=== PATIENT | female | born 1975 | race Caucasian/White ===

== ENCOUNTER 2019-04-15 21:17 | Emergency (ER) | payer SELFPAY ==
[~2019-04-15] VITALS: Ht 170.1 cm; Wt 90.2 kg
--- NOTE | 2019-04-15 21:18 | ED Abdominal Pain ---
General Stated Complaint: ABD PAIN Source of Information: Patient, EMS Exam Limitations: No Limitations History of Present Illness Date Seen by Provider: Apr 15, 2019 Time Seen by Provider: 21:17 Initial Comments 43-year-old female presents with abdominal pain, nausea "can't keep anything down" some vomiting diarrhea. Patient reports she's had some abdominal cramping for the last couple days. Patient reports that she just got out of detox this morning from heroin abuse. Patient reports that she use her 1 almost daily prior to that. Patient reports that the pain isn't gone for the last couple days but was worse today. Allergies and Home Medications Allergies Coded Allergies: azithromycin (Verified Allergy, Unknown, 04/15/19) cefaclor (Verified Allergy, Unknown, 04/15/19) ciprofloxacin (Verified Allergy, Unknown, 04/15/19) doxycycline (Verified Allergy, Unknown, 04/15/19) Uncoded Allergies: avalox (Allergy, Unknown, 04/15/19) Patient Home Medication List Home Medication List Reviewed: Yes Review of Systems Review of Systems Constitutional: No chills, No fever Respiratory: Denies Cough, Denies Shortness of Air Cardiovascular: Denies Chest Pain Gastrointestinal: Denies Abdomen Distended; Abdominal Pain, Diarrhea, Nausea, Vomiting Musculoskeletal: no symptoms reported Skin: no symptoms reported Psychiatric/Neurological: No Symptoms Reported Past [id number] Hx Past Med/Social Hx: Reviewed Nursing Past Med/Soc Hx Physical Exam Vital Signs Vital Signs - First Documented 04/15/19 21:25 Temp 36.9 Pulse 56 Resp 18 B/P (MAP) 150/79 (102) Pulse Ox 98 O2 Delivery Room Air Capillary Refill : Height/Weight/BMI Height: '" Weight: lbs. oz. kg; BMI Method: General Appearance: mild distress HEENT: PERRL/EOMI, normal ENT inspection Respiratory: chest non-tender, lungs clear, normal breath sounds Cardiovascular: normal peripheral pulses, regular rate, rhythm Gastrointestinal: soft; No guarding, No rebound; tenderness (mild diffuse ) Extremities: normal range of motion, non-tender Back: no CVA tenderness Focused Exam Lactate Level 04/15/19 21:25: Lactic Acid Level 2.15*H Lactic Acid Level Laboratory Tests Test 04/15/19 21:25 Lactic Acid Level 2.15 MMOL/L (0.50-2.00) *H Progress/Results/Core Measures Results/Orders Lab Results Laboratory Tests Test 04/15/19 21:25 04/15/19 22:51 Range/Units White Blood Count 14.3 H 4.3-11.0 10^3/uL Red Blood Count 4.77 4.35-5.85 10^6/uL Hemoglobin 13.8 11.5-16.0 G/DL Hematocrit 41 35-52 % Mean Corpuscular Volume 86 80-99 FL Mean Corpuscular Hemoglobin 29 25-34 PG Mean Corpuscular Hemoglobin Concent 34 32-36 G/DL Red Cell Distribution Width 14.7 H 10.0-14.5 % Platelet Count 336 130-400 10^3/uL Mean Platelet Volume 11.6 H 7.4-10.4 FL Neutrophils (%) (Auto) 73 42-75 % Lymphocytes (%) (Auto) 20 12-44 % Monocytes (%) (Auto) 7 0-12 % Eosinophils (%) (Auto) 0 0-10 % Basophils (%) (Auto) 1 0-10 % Neutrophils # (Auto) 10.4 H 1.8-7.8 X 10^3 Lymphocytes # (Auto) 2.8 1.0-4.0 X 10^3 Monocytes # (Auto) 1.0 0.0-1.0 X 10^3 Eosinophils # (Auto) 0.0 0.0-0.3 10^3/uL Basophils # (Auto) 0.1 0.0-0.1 10^3/uL Sodium Level 140 135-145 MMOL/L Potassium Level 3.9 3.6-5.0 MMOL/L Chloride Level 104 98-107 MMOL/L Carbon Dioxide Level 22 21-32 MMOL/L Anion Gap 14 5-14 MMOL/L Blood Urea Nitrogen 8 7-18 MG/DL Creatinine 0.82 0.60-1.30 MG/DL Estimat Glomerular Filtration Rate > 60 BUN/Creatinine Ratio 10 Glucose Level 123 H 70-105 MG/DL Lactic Acid Level 2.15 *H 0.50-2.00 MMOL/L Calcium Level 9.1 8.5-10.1 MG/DL Corrected Calcium 8.9 8.5-10.1 MG/DL Total Bilirubin 0.8 0.1-1.0 MG/DL Aspartate Amino Transf (AST/SGOT) 39 H 5-34 U/L Alanine Aminotransferase (ALT/SGPT) 27 0-55 U/L Alkaline Phosphatase 62 40-136 U/L Total Protein 6.9 6.4-8.2 GM/DL Albumin 4.2 3.2-4.5 GM/DL Lipase 27 8-78 U/L Serum Test, Qualitative NEGATIVE NEGATIVE Urine Color YELLOW Urine Clarity CLOUDY Urine pH 6.5 5-9 Urine Specific [place] 1.010 L 1.016-1.022 Urine Protein NEGATIVE NEGATIVE Urine Glucose (UA) NEGATIVE NEGATIVE Urine Ketones NEGATIVE NEGATIVE Urine Nitrite NEGATIVE NEGATIVE Urine Bilirubin NEGATIVE NEGATIVE Urine Urobilinogen 1.0 < = 1.0 MG/DL Urine Leukocyte Esterase NEGATIVE NEGATIVE Urine RBC (Auto) TRACE-I NEGATIVE Urine RBC 0-2 /HPF Urine WBC 10-25 H /HPF Urine Squamous Epithelial Cells 25-50 H /HPF Urine Crystals NONE /LPF Urine Bacteria LARGE H /HPF Urine Casts NONE /LPF Urine Mucus NEGATIVE /LPF Urine Culture Indicated YES Urine Opiates Screen NEGATIVE NEGATIVE Urine Oxycodone Screen NEGATIVE NEGATIVE Urine Methadone Screen NEGATIVE NEGATIVE Urine Propoxyphene Screen NEGATIVE NEGATIVE Urine Barbiturates Screen NEGATIVE NEGATIVE Ur Tricyclic Antidepressants Screen NEGATIVE NEGATIVE Urine Phencyclidine Screen NEGATIVE NEGATIVE Urine Amphetamines Screen NEGATIVE NEGATIVE Urine Methamphetamines Screen NEGATIVE NEGATIVE Urine Benzodiazepines Screen POSITIVE H NEGATIVE Urine Cocaine Screen POSITIVE H NEGATIVE Urine Cannabinoids Screen NEGATIVE NEGATIVE My Orders Orders - MARY LOU HERRING L DO Comprehensive Metabolic Panel (04/15/19 21:18) Lipase (04/15/19 21:18) Ua Culture If Indicated (04/15/19 21:18) Hcg,Qualitative Serum (04/15/19 21:18) Cbc With Automated Diff (04/15/19 21:18) Lactic Acid Analyzer (04/15/19 21:18) Ondansetron Injection (Zofran Injectio (04/15/19 21:30) Ns Iv 1000 Ml (Sodium Chloride 0.9%) (04/15/19 21:23) Famotidine Injection (Pepcid Injection) (04/15/19 21:23) Ketorolac Injection (Toradol Injection) (04/15/19 21:23) Manual Differential (04/15/19 21:25) Ketamine Syringe (Ed Only) (Ketamine Syr (04/15/19 22:00) Drug Screen Stat (Urine) (04/15/19 21:50) Ct Abdomen/Pelvis W (04/15/19 22:04) Iohexol Injection (Omnipaque 350 Mg/Ml 1 (04/15/19 22:15) Received Contrast (Hold Metformin- Contr (04/15/19 22:15) Ns (Ivpb) (Sodium Chloride 0.9% Ivpb Bag (04/15/19 22:15) Urine Culture (04/15/19 22:51) Metoclopramide Injection (Reglan Injecti (04/15/19 23:04) Hyoscyamine Sl Tablet (Levsin Sl Tablet) (04/15/19 23:15) Dicyclomine Capsule (Bentyl Capsule) (04/16/19 06:00) Dicyclomine Injection (Bentyl Injection) (04/15/19 23:15) Medications Given in ED Current Medications Medications Dose Ordered Sig/Annette Route Start Time Stop Time Status Last Admin Dose Admin Dicyclomine HCl 20 mg QID PRN IM 04/15/19 23:15 04/15/19 23:15 20 MG Hyoscyamine Sulfate 0.125 mg ONCE ONCE SL 04/15/19 23:15 04/15/19 23:16 DC 04/15/19 23:14 0.125 MG Iohexol 100 ml ONCE ONCE IV 04/15/19 22:15 04/15/19 22:16 DC 04/15/19 22:18 100 ML Ketamine HCl 20 mg ONCE ONCE IV 04/15/19 22:00 04/15/19 22:01 DC 04/15/19 21:57 20 MG Ondansetron HCl 4 mg ONCE ONCE IVP 04/15/19 21:30 04/15/19 21:31 DC 04/15/19 21:34 4 MG Sodium Chloride 100 ml ONCE ONCE IV 04/15/19 22:15 04/15/19 22:16 DC 04/15/19 22:19 100 ML Vital Signs/I&O 04/15/19 21:25 Temp 36.9 Pulse 56 Resp 18 B/P (MAP) 150/79 (102) Pulse Ox 98 O2 Delivery Room Air Departure Impression Primary Impression: Nausea and vomiting Qualified Codes: R11.2 - Nausea with vomiting, unspecified Additional Impressions: OPIOID DEPENDENCE WITH WITHDRAWAL GENERALIZED ABDOMINAL PAIN Disposition: HOME, SELF-CARE Condition: Stable Departure-Patient Inst. Patient Instructions: Drug Withdrawal (DC), Nausea and Vomiting, Adult Scripts Dicyclomine HCl (Dicyclomine HCl) 10 Mg Capsule 10 MG PO TID PRN for PAIN-MILD (1-4), #14 CAP Prov: MARY LOU HERRING DO 04/15/19 Ondansetron (Ondansetron Odt) 4 Mg Tab.rapdis 4 MG PO Q6H PRN for NAUSEA/VOMITING, #30 TAB Prov: MARY LOU HERRING DO 04/15/19 Hyoscyamine Sulfate (Levsin-Sl) 0.125 Mg Tab.subl 0.125 MG SL Q4H, #10 TAB 0 Refills Prov: MARY LOU HERRING DO 04/15/19 MARY LOU HERRING DO Apr 15, 2019 21:18 POS
[2019-04-15] MEDS ORDERED: FAMOTIDINE 20MG/2ML IV (PEPCID) IV STA (21:23)
[2019-04-15] MEDS ORDERED: NS IV 1000 ML 1,000 ML IV STA (21:23)
[2019-04-15] MEDS ORDERED: KETOROLAC 30 MG/ML VIAL IVP STA (21:23)
[2019-04-15] MEDS ORDERED: ONDANSETRON 4 MG/2 ML (SDV) Z0FRAN IVP ONE (21:30)
[2019-04-15 21:32] LABS: HEMATOCRIT 41 % (35-52); HEMOGLOBIN 13.8 G/DL (11.5-16.0); MEAN CORPUSCULAR HEMOGLOBIN 29 PG (25-34); MEAN CORPUSCULAR HGB CONC 34 G/DL (32-36); MEAN CORPUSCULAR VOLUME 86 FL (80-99); MEAN PLATELET VOLUME 11.6 FL (7.4-10.4); PLATELET COUNT 336 10^3/uL (130-400); RED CELL DISTRIBUTION WIDTH 14.7 % (10.0-14.5); WHITE BLOOD COUNT 14.3 10^3/uL (4.3-11.0)
[2019-04-15 21:33] LABS: BASOPHILS # (AUTO) 0.1 10^3/uL (0.0-0.1); BASOPHILS % (AUTO) 1 % (0-10); EOSINOPHILS % (AUTO) 0 % (0-10); LYMPHOCYTES # (AUTO) 2.8 X 10^3 (1.0-4.0); LYMPHOCYTES % (AUTO) 20 % (12-44); MONOCYTES % (AUTO) 7 % (0-12); NEUTROPHILS # (AUTO) 10.4 X 10^3 (1.8-7.8); NEUTROPHILS % (AUTO) 73 % (42-75)
[2019-04-15 21:56] LABS: ALKALINE PHOSPHATASE 62 U/L (40-136); BILIRUBIN,TOTAL 0.8 MG/DL (0.1-1.0); BUN/CREATININE RATIO 10; CALCIUM 9.1 MG/DL (8.5-10.1); CARBON DIOXIDE 22 MMOL/L (21-32); CHLORIDE 104 MMOL/L (98-107); CREATININE SERUM 0.82 MG/DL (0.60-1.30); GFR ESTIMATED > 60; GLUCOSE 123 MG/DL (70-105); POTASSIUM 3.9 MMOL/L (3.6-5.0); SODIUM 140 MMOL/L (135-145)
[2019-04-15 21:57] LABS: ALANINE AMINOTRANSFERASE 27 U/L (0-55); ALBUMIN 4.2 GM/DL (3.2-4.5); LIPASE 27 U/L (8-78); TOTAL PROTEIN 6.9 GM/DL (6.4-8.2)
[2019-04-15] MEDS ORDERED: KETAMINE/NaCl 50 MG/5 ML SYRINGE (ED ONLY) IV ONE (22:00)
[2019-04-15] MEDS ORDERED: IOHEXOL 350 MG/ML 100 ML (OMNIPAQUE 350) VIAL IV ONE (22:15)
[2019-04-15] MEDS ORDERED: HOLD METFORMIN - RECEIVED CONTRAST 20 ML VIAL IV SCH (22:15)
[2019-04-15] MEDS ORDERED: NS 100 ML (IVPB) BAG IV ONE (22:15)
[2019-04-15 23:03] LABS: BACTERIA,URINE LARGE /HPF; BILIRUBIN,URINE NEGATIVE (NEGATIVE); CLARITY,URINE CLOUDY; COLOR,URINE YELLOW; GLUCOSE, URINE (UA) NEGATIVE (NEGATIVE); KETONES,URINE NEGATIVE (NEGATIVE); LEUKOCYTE ESTERASE ,URINE NEGATIVE (NEGATIVE); NITRITE,URINE NEGATIVE (NEGATIVE); PH,URINE 6.5 (5-9); PROTEIN,URINE NEGATIVE (NEGATIVE); RBC,URINE 0-2 /HPF; SQUAMOUS EPITHELIAL CELL,UR 25-50 /HPF
[2019-04-15] MEDS ORDERED: METOCLOPRAMIDE INJ 10 MG/2 ML (REGLAN) IVP STA (23:04)
[2019-04-15 23:10] LABS: BENZODIAZEPINES SCREEN URINE POSITIVE (NEGATIVE); CANNABINOID SCREEN, URINE NEGATIVE (NEGATIVE); COCAINE SCREEN URINE POSITIVE (NEGATIVE); OPIATE SCREEN URINE NEGATIVE (NEGATIVE)
[2019-04-15 23:11] LABS: AMPHETAMINE SCREEN, URINE NEGATIVE (NEGATIVE); BARBITURATE SCREEN URINE NEGATIVE (NEGATIVE); METHADONE STAT NEGATIVE (NEGATIVE); METHAMPHETAMINE SCREEN URINE S NEGATIVE (NEGATIVE); OXYCODONE STAT NEGATIVE (NEGATIVE); PROPOXYPHENE STAT NEGATIVE (NEGATIVE); TRICYCLIC ANTIDEPRESSANTS SCRE NEGATIVE (NEGATIVE)
[2019-04-15] MEDS ORDERED: HYOSCYAMINE 0.125 MG (LEVSIN) TAB SL ONE (23:15)
[2019-04-15] MEDS ORDERED: DICYCLOMINE 10 MG/ML (BENTYL) 2 ML AMP IM PRN (23:15)
[2019-04-15] MEDS ORDERED: ONDA4TAB11 PO (23:35)
[2019-04-15] MEDS ORDERED: HYOS0.1283 SL (23:35)
[2019-04-15] MEDS ORDERED: DICY10CA12 PO (23:37)
--- NOTE | 2019-04-15 23:37 | NUR ---
pt walked out of room and stated "I am done" and went to waiting area.
[2019-04-15 23:40] VITALS: BP 135/77
[2019-04-16 00:07] LABS: EOSINOPHILS % (MANUAL) 1 %; LYMPHOCYTES % (MANUAL) 7 %; MICROCYTOSIS MARKED; MONOCYTES % (MANUAL) 7 %; NEUTROPHILS % (MANUAL) 79 %; REACTIVE LYMPHOCYTES 6 %
[2019-04-16] MEDS ORDERED: DICYCLOMINE 10 MG (BENTYL) CAP PO SCH (06:00)
--- NOTE | 2019-04-16 06:44 | Diagnostic Imaging Report ---
PROCEDURE: CT abdomen and pelvis with contrast. TECHNIQUE: Multiple contiguous axial images were obtained through the abdomen and pelvis after administration of intravenous contrast. Auto Exposure Controls were utilized during the CT exam to meet ALARA standards for radiation dose reduction. INDICATION: Severe abdominal pain with loss of appetite, nausea and vomiting. COMPARISON: None. DISCUSSION: The lung bases are well-aerated. Normal heart size. No pleural or pericardial fluid. Fatty infiltration of liver is noted. The gallbladder is contracted. No stone identified. The pancreas, stomach, spleen, and adrenal glands are unremarkable. No hydronephrosis or stone identified. The aorta is normal in caliber. There is patchy enhancement of the uterus which is nonspecific and of uncertain etiology or clinical significance. No evidence of appendicitis. No obstruction, pneumatosis, pneumoperitoneum. No constipation. Trace free fluid within the pelvis is likely physiologic. Urinary bladder is unremarkable. Right hip prosthesis is present. Nondisplaced right L5 pars defect is incidentally noted. No acute osseous abnormality. IMPRESSION: 1. Chronic changes as discussed. No acute abnormality identified within either the abdomen or pelvis. 2. Agree with preliminary report. Dictated by: Dictated on workstation # [id number]
== END 2019-04-15 23:40 | disposition home or self-care (01) ==
LOC: ER FS 21:18
DX: R11.2 Nausea with vomiting, unspecified (principal); F11.23 Opioid dependence with withdrawal; R10.84 Generalized abdominal pain; Z88.1 Allergy status to other antibiotic agents; Z88.8 Allergy status to other drugs, medicaments and biological substances
CPT/HCPCS: 36415; 74177; 80053; 80306; 81000; 83605; 83690; 84703; 85007; 85027; 87088; 96361; 96372; 96374; 96375